=== PATIENT | male | born 1955 | race African-American/Black ===

== ENCOUNTER 2023-08-14 01:08 | Inpatient (IN) | payer BC, OTHER ==
[2023-08-14] VITALS (11 sets, daily range): BP systolic 115–129; BP diastolic 59–72; PULSE 85–120; RESP 18–36; TEMP 97–98.5; O2SAT 94–99
[~2023-08-14] VITALS: Ht 180.3 cm; Wt 70.3 kg
[2023-08-14 01:58] LABS: BASOPHILS % (AUTO) 0.4 % (0.0-2.0); EOSINOPHILS % (AUTO) 0.2 % (0.0-4.0); HEMATOCRIT 46.1 % (36-52); HEMOGLOBIN 15.1 g/dL (12.0-18.0); LYMPHOCYTES # (AUTO) 1.6 K/uL (2.0-11.5); LYMPHOCYTES % (AUTO) 35.3 % (20.5-51.1); MEAN CORPUSCULAR HEMOGLOBIN 28 pg (27-31); MEAN CORPUSCULAR HGB CONC 33 g/dL (33-37); MEAN CORPUSCULAR VOLUME 84.4 fL (80-94); MONOCYTES # (AUTO) 0.2 K/uL (0.8-1.0); NEUTROPHILS # (AUTO) 2.7 K/uL (1.8-7.7); NEUTROPHILS % (AUTO) 59.1 % (42.2-75.2); PLATELET COUNT (AUTO) 89 K/uL (140-450); RED BLOOD CELL COUNT(AUTO) 5.46 MIL/uL (4.20-6.10); RED CELL DISTRIBUTION WIDTH 14.8 % (11.6-13.7); WHITE BLOOD COUNT (AUTO) 4.5 K/uL (4.8-10.8)
[2023-08-14] MEDS: NACL 0.9% 1,000 ML IV ONE ×3 (02:08→07:10)
[2023-08-14 02:11] LABS: INR 1.09 (0.8-1.2); PARTIAL THROMBOPLASTIN TIME 22.4 secs (22-35.6); PROTHROMBIN TIME 11.4 secs (10.8-13.4)
[2023-08-14 02:24] LABS: ANION GAP 31.2 (8-16); CALCIUM 10.4 mg/dL (8.5-10.1); CREATININE 2.7 mg/dL (0.6-1.3); POTASSIUM 3.2 mmol/L (3.5-5.1)
[2023-08-14 02:30] LABS: BLOOD GAS HCO3 14.7 mmol/L (22-26); BLOOD GAS PCO2 22.3 mmHg (35-45)
[2023-08-14 02:31] LABS: BLOOD GAS O2 SAT% 94.5 % (92.0-98.5); FRACTIONATED INSPIRED OXYGEN 0.36 % (0.21-100.00)
[2023-08-14 02:32] LABS: FLU A ANTIGEN negative (NEGATIVE); FLU B ANTIGEN NEGATIVE (NEGATIVE); RSV NEGATIVE (NEGATIVE)
[2023-08-14 02:34] LABS: MAGNESIUM 2.9 mg/dL (1.8-2.4); PHOSPHORUS 5.1 mg/dL (2.5-4.9)
[2023-08-14 02:37] LABS: LACTIC ACID 3.9 mmol/L (0.4-2.0)
[2023-08-14] MEDS: LEVALBUTEROL 1.25 MG/0.5 ML NEBU INH ONE (02:48)
[2023-08-14] MEDS: ASPIRIN 300 MG SUPP RC ONE (02:53)
[2023-08-14] MEDS ORDERED: HEPA500056 SQ (03:41)
[2023-08-14] MEDS ORDERED: ACET-8905 PO (03:41)
[2023-08-14] MEDS ORDERED: MIRT-33 PO (03:41)
[2023-08-14] MEDS ORDERED: ONDA-188 PO (03:41)
[2023-08-14] MEDS ORDERED: ACET-2619 PO (03:41)
[2023-08-14] MEDS ORDERED: MUC600 PO (03:41)
[2023-08-14] MEDS ORDERED: MULT-2472 PO (03:41)
[2023-08-14] MEDS ORDERED: [UNRECOGNIZED DRUG - CODE] PO (03:41)
[2023-08-14] MEDS ORDERED: HYDR12.51 PO (03:41)
[2023-08-14] MEDS ORDERED: LISI-486 PO (03:41)
[2023-08-14] MEDS ORDERED: HYDR-5191 PO (03:41)
[2023-08-14] MEDS ORDERED: CETI10TA71 PO (03:41)
[2023-08-14] MEDS ORDERED: HYDR-1102 PO (03:41)
[2023-08-14] MEDS ORDERED: SIMV-371 PO (03:41)
[2023-08-14] MEDS ORDERED: AZITHROMYCIN 500 MG INJ VIAL IV ONE (04:06)
[2023-08-14] MEDS ORDERED: cefTRIAXone 1,000 MG VIAL ONE (04:06)
[2023-08-14] MEDS: AZITHROMYCIN 500 MG in DEXTROSE 5% 250 ML IV ONE (04:27)
[2023-08-14] MEDS ORDERED: NACL 0.9% 1,000 ML IV SCH (06:55)
[2023-08-14] MEDS: NACL 0.9% 1,000 ML IV SCH ×2 (07:11→08:00)
[2023-08-14] MEDS ORDERED: POTASSIUM CHLORIDE 10 MEQ TABER PO PRN (09:30)
[2023-08-14 10:01] LABS: BASOPHILS % (AUTO) 0.4 % (0.0-2.0); HEMOGLOBIN 13.3 g/dL (12.0-18.0); LYMPHOCYTES # (AUTO) 0.6 K/uL (2.0-11.5); MONOCYTES # (AUTO) 0.1 K/uL (0.8-1.0); PLATELET COUNT (AUTO) 70 K/uL (140-450)
[2023-08-14 10:02] LABS: EOSINOPHILS % (AUTO) 0.1 % (0.0-4.0); HEMATOCRIT 40.8 % (36-52); LYMPHOCYTES % (AUTO) 33.4 % (20.5-51.1); MEAN CORPUSCULAR HEMOGLOBIN 28 pg (27-31); MEAN CORPUSCULAR HGB CONC 33 g/dL (33-37); MEAN CORPUSCULAR VOLUME 84.6 fL (80-94); MONOCYTES % (AUTO) 5.4 % (1.7-9.3); NEUTROPHILS % (AUTO) 60.7 % (42.2-75.2); RED BLOOD CELL COUNT(AUTO) 4.82 MIL/uL (4.20-6.10); RED CELL DISTRIBUTION WIDTH 15.4 % (11.6-13.7)
[2023-08-14 10:07] LABS: WHITE BLOOD COUNT (AUTO) 1.7 K/uL (4.8-10.8)
[2023-08-14 10:11] LABS: ANION GAP 19.5 (8-16); CALCIUM 9.1 mg/dL (8.5-10.1); CARBON DIOXIDE 21.6 mmol/L (21-32); POTASSIUM 3.1 mmol/L (3.5-5.1)
[2023-08-14 10:12] LABS: INR 1.11 (0.8-1.2); PROTHROMBIN TIME 11.6 secs (10.8-13.4)
[2023-08-14 10:20] LABS: LACTIC ACID 3.2 mmol/L (0.4-2.0)
[2023-08-14 10:28] LABS: CHOL/HDL RATIO 6.6 (1-4.5); FREE T4 (FREE THYROXINE) 0.8 ng/dL (0.76-1.46); MAGNESIUM 2.4 mg/dL (1.8-2.4); PHOSPHORUS 2.9 mg/dL (2.5-4.9); THYROID STIMULATING HORMONE 0.34 uIU/mL (0.34-3.74)
[2023-08-14] MEDS: DEXTROSE 5% 1,000 ML IV SCH (12:50)
[2023-08-14] MEDS: POTASSIUM CHLORIDE 40 MEQ, LIDOCAINE 1% 25 MG in NACL 0.9% 250 ML IV SCH (17:52)
[2023-08-14 19:41] LABS: ANION GAP 19.1 (8-16); CALCIUM 9.4 mg/dL (8.5-10.1); CREATININE 1.5 mg/dL (0.6-1.3); POTASSIUM 3.1 mmol/L (3.5-5.1)
[2023-08-14] MEDS: DOCUSATE SODIUM 100 MG GELCAP PO SCH (20:38)
[2023-08-14] MEDS: MIRTAZAPINE 15 MG TAB PO SCH (20:38)
[2023-08-14] MEDS: SIMVASTATIN 10 MG TAB PO SCH (20:38)
[2023-08-14] MEDS ORDERED: GALANTAMINE HBR 16 MG PO SCH (21:00)
[2023-08-15] VITALS (13 sets, daily range): BP systolic 113–178; BP diastolic 53–83; PULSE 53–91; RESP 19–24; TEMP 95.9–98.7; O2SAT 91–100
[2023-08-15] MEDS ORDERED: ALBUTEROL SULFATE/IPRATROPIU 3 ML SOL IH PRN (01:00)
[2023-08-15 02:48] LABS: APPEARANCE,URINE CLEAR (CLEAR); BILIRUBIN,URINE NEGATIVE (NEGATIVE); BLOOD, URINE 2+ (NEGATIVE); COLOR,URINE YELLOW (YELLOW); LEUKOCYTE ESTERASE ,URINE NEGATIVE (NEGATIVE); NITRITE, URINE NEGATIVE (NEGATIVE); PROTEIN,URINE NEGATIVE (NEGATIVE); UGLUCOSE NEGATIVE (NEGATIVE); UROBILINOGEN,URINE 0.2 EU/dL (0.2 - 1)
[2023-08-15 02:53] LABS: BACTERIA,URINE 10-30 (MOD) /HPF (None Seen); MUCUS,URINE 1+ /LPF (None Seen); SQUAMOUS EPITHELIAL CELL,UR 0-3 (FEW) /LPF (0-3 (FEW)); WBC,URINE 0-5 /HPF (0-5)
[2023-08-15 03:03] LABS: AMPHETAMINE, URINE NEGATIVE ng/ml (NEG <=1000); BARBITURATE, URINE NEGATIVE ng/ml (NEG <=200); BENZODIAZEPINE, URINE POSITIVE ng/mL (NEG <=200); CANNABINOID, URINE NEGATIVE ng/mL (NEG <=50); COCAINE, URINE NEGATIVE ng/mL (NEG <=300); OPIATE, URINE NEGATIVE ng/mL (NEG <=2000); PHENCYCLIDINE SCREEN,URINE NEGATIVE ng/mL (NEG <=25)
[2023-08-15 06:52] LABS: BASOPHILS % (AUTO) 0.3 % (0.0-2.0); EOSINOPHILS % (AUTO) 0.4 % (0.0-4.0); HEMATOCRIT 36.5 % (36-52); HEMOGLOBIN 12.1 g/dL (12.0-18.0); LYMPHOCYTES # (AUTO) 0.9 K/uL (2.0-11.5); LYMPHOCYTES % (AUTO) 27.5 % (20.5-51.1); MEAN CORPUSCULAR HEMOGLOBIN 28 pg (27-31); MEAN CORPUSCULAR HGB CONC 33 g/dL (33-37); MEAN CORPUSCULAR VOLUME 83.5 fL (80-94); MONOCYTES # (AUTO) 0.1 K/uL (0.8-1.0); MONOCYTES % (AUTO) 4.4 % (1.7-9.3); NEUTROPHILS # (AUTO) 2.2 K/uL (1.8-7.7); NEUTROPHILS % (AUTO) 67.4 % (42.2-75.2); PLATELET COUNT (AUTO) 59 K/uL (140-450); RED BLOOD CELL COUNT(AUTO) 4.37 MIL/uL (4.20-6.10); RED CELL DISTRIBUTION WIDTH 15.3 % (11.6-13.7); WHITE BLOOD COUNT (AUTO) 3.2 K/uL (4.8-10.8)
[2023-08-15 07:23] LABS: MAGNESIUM 2.2 mg/dL (1.8-2.4); PHOSPHORUS 2.1 mg/dL (2.5-4.9)
[2023-08-15] MEDS: ALBUTEROL SULFATE/IPRATROPIU 3 ML SOL IH SCH ×2 (07:45→12:33)
[2023-08-15 08:02] LABS: ANION GAP 15.7 (8-16); CALCIUM 9.5 mg/dL (8.5-10.1); CARBON DIOXIDE 22.4 mmol/L (21-32); CREATININE 1.3 mg/dL (0.6-1.3); POTASSIUM 3.1 mmol/L (3.5-5.1)
[2023-08-15] MEDS ORDERED: hydroCHLOROthiazide 25 MG TAB PO SCH (09:00)
[2023-08-15] MEDS ORDERED: NON-FORMULARY ITEM (Multivitamin (Multivitamins) 1 TAB) PO SCH (09:00)
[2023-08-15] MEDS ORDERED: AZITHROMYCIN 500 MG in DEXTROSE 5% 250 ML IV SCH (09:00)
[2023-08-15] MEDS ORDERED: NON-FORMULARY ITEM (Cetirizine HCl (Cetirizine Hcl) 10 MG) PO SCH (09:00)
[2023-08-15] MEDS: MULTIVITAMIN 1 TAB PO SCH (09:55)
[2023-08-15] MEDS: hydrALAZINE 10 MG TAB PO SCH (09:55)
[2023-08-15] MEDS: LORATADINE 10 MG TAB PO SCH (09:56)
[2023-08-15] MEDS: lisinopriL 10 MG TAB PO SCH (09:56)
[2023-08-15] MEDS: HYDROcodone/APAP 7.5/325 MG 1 TAB PO PRN (09:58)
[2023-08-15] MEDS: PANTOPRAZOLE 40 MG INJ VIAL IVP SCH (09:58)
[2023-08-15] MEDS: metroNIDAZOLE 500 MG TAB PO SCH (09:59)
[2023-08-15] MEDS: POTASSIUM CHLORIDE 20% 40 MEQ/15 ML UDC NG PRN (11:27)
[2023-08-15] MEDS: DEXT 5% / NACL 0.45% 1,000 ML IV SCH (14:35)
[2023-08-15] MEDS ORDERED: POTASSIUM PHOSPHATE 15 MM in NACL 0.9% 250 ML IV ONE (15:20)
[2023-08-15] MEDS ORDERED: hydrALAZINE 25 MG TAB NG PRN (15:50)
[2023-08-15] MEDS: POTASSIUM PHOSPHATE 15 MM in NACL 0.9% 250 ML IV SCH (15:57)
[2023-08-15] MEDS: METOPROLOL 25 MG TAB PO SCH (21:39)
[2023-08-16] VITALS (8 sets, daily range): BP systolic 141–147; BP diastolic 73–77; PULSE 74–103; RESP 17–26; TEMP 98; O2SAT 97–100
[2023-08-16 06:48] LABS: BASOPHILS % (AUTO) 0.4 % (0.0-2.0); HEMATOCRIT 34.1 % (36-52); HEMOGLOBIN 11.5 g/dL (12.0-18.0); LYMPHOCYTES # (AUTO) 1.4 K/uL (2.0-11.5); LYMPHOCYTES % (AUTO) 31.6 % (20.5-51.1); MEAN CORPUSCULAR HEMOGLOBIN 28 pg (27-31); MEAN CORPUSCULAR HGB CONC 34 g/dL (33-37); MEAN CORPUSCULAR VOLUME 83.2 fL (80-94); MONOCYTES # (AUTO) 0.1 K/uL (0.8-1.0); MONOCYTES % (AUTO) 3.3 % (1.7-9.3); NEUTROPHILS # (AUTO) 2.8 K/uL (1.8-7.7); NEUTROPHILS % (AUTO) 63.7 % (42.2-75.2); PLATELET COUNT (AUTO) 45 K/uL (140-450); WHITE BLOOD COUNT (AUTO) 4.3 K/uL (4.8-10.8)
[2023-08-16 07:01] LABS: ANION GAP 16.4 (8-16); CALCIUM 9.5 mg/dL (8.5-10.1); CREATININE 1.2 mg/dL (0.6-1.3); POTASSIUM 3.4 mmol/L (3.5-5.1)
[2023-08-16 07:02] LABS: MAGNESIUM 1.9 mg/dL (1.8-2.4); PHOSPHORUS 3.3 mg/dL (2.5-4.9)
[2023-08-16] MEDS: DOCUSATE 100 MG/10 ML UDC GT SCH (09:28)
[2023-08-16] MEDS: MIDAZOLAM 5 MG/5 ML VIAL ONE (14:07)
[2023-08-16] MEDS: fentaNYL citrate 0.05 MG/ML VIAL ONE (14:27)
[2023-08-16] MEDS: fentaNYL citrate 0.05 MG/ML VIAL IVP ONE (14:35)
[2023-08-16] MEDS: MIDAZOLAM 2 MG/2 ML VIAL IV ONE (14:35)
[2023-08-16] MEDS: ceFAZolin 1,000 MG VIAL ONE (15:21)
[2023-08-16] MEDS: METOCLOPRAMIDE 10 MG/10 ML SYRP UDC GT SCH (16:57)
[2023-08-16] MEDS: MAGNESIUM HYDROXIDE 2400 MG/30 ML UDC GT SCH (16:58)
[2023-08-16] MEDS: POTASSIUM CHLORIDE 20% 40 MEQ/15 ML UDC GT SCH (18:27)
[2023-08-16] MEDS: DEXTROSE 5% 1,000 ML IV SCH (18:34)
[2023-08-17] VITALS (7 sets, daily range): BP systolic 112–148; BP diastolic 55–75; PULSE 81–103; RESP 17–26; TEMP 97.8–98.9; O2SAT 95–100
[2023-08-17 06:53] LABS: HEMATOCRIT 34.4 % (36-52); HEMOGLOBIN 11.5 g/dL (12.0-18.0); MEAN CORPUSCULAR HEMOGLOBIN 28 pg (27-31); MEAN CORPUSCULAR HGB CONC 33 g/dL (33-37); MEAN CORPUSCULAR VOLUME 83.2 fL (80-94); PLATELET COUNT (AUTO) 32 K/uL (140-450); RED BLOOD CELL COUNT(AUTO) 4.14 MIL/uL (4.20-6.10); WHITE BLOOD COUNT (AUTO) 5.3 K/uL (4.8-10.8)
[2023-08-17 07:07] LABS: ANION GAP 14.8 (8-16); CALCIUM 9.2 mg/dL (8.5-10.1); CARBON DIOXIDE 23.9 mmol/L (21-32); CREATININE 0.9 mg/dL (0.6-1.3); POTASSIUM 3.7 mmol/L (3.5-5.1)
[2023-08-17 07:14] LABS: MAGNESIUM 1.7 mg/dL (1.8-2.4)
[2023-08-17] MEDS: MAG SULF 2000 MG/WATER PREMIX 50 ML IV PRN (07:50)
[2023-08-17 07:58] LABS: BASOPHILS % (MANUAL) 0 % (0-2); BLASTS, MANUAL % 0 % (0-0); EOSINOPHILS % (MANUAL) 0 % (0-4); LYMPHOCYTES % (MANUAL) 20 % (20-46); METAMYELOCYTES % 1 % (0-0); MONOCYTES % (MANUAL) 3 % (5-12); MYELOCYTES % 0 % (0-0); OTHER CELLS,MANUAL % 0 (0-0); PROMYELOCYTES % 0 % (0-0)
[2023-08-17 08:00] LABS: PLATELET ESTIMATE DECREASED
[2023-08-17] MEDS: MAG SULF 2000 MG/WATER PREMIX 50 ML IV SCH (10:30)
[2023-08-18 04:00] VITALS: BP 152/82; PULSE 94; RESP 18; TEMP 98.1; O2SAT 100
[2023-08-18 06:54] VITALS: PULSE 109; PULSE 95; RESP 24; O2SAT 94; O2SAT 95
[2023-08-18 07:14] LABS: CARBON DIOXIDE 22.8 mmol/L (21-32); CREATININE 0.9 mg/dL (0.6-1.3); POTASSIUM 3.8 mmol/L (3.5-5.1)
[2023-08-18 07:20] LABS: MAGNESIUM 1.9 mg/dL (1.8-2.4); PHOSPHORUS 4.6 mg/dL (2.5-4.9)
[2023-08-18 08:00] VITALS: BP 155/89; PULSE 122; PULSE 94; RESP 17; RESP 22; TEMP 97.5; O2SAT 95
[2023-08-18 08:14] LABS: BASOPHILS % (AUTO) 0.3 % (0.0-2.0); EOSINOPHILS # (AUTO) 0.1 K/uL (0-0.4); HEMATOCRIT 35.7 % (36-52); HEMOGLOBIN 11.8 g/dL (12.0-18.0); LYMPHOCYTES # (AUTO) 2.1 K/uL (2.0-11.5); LYMPHOCYTES % (AUTO) 29.7 % (20.5-51.1); MEAN CORPUSCULAR HEMOGLOBIN 28 pg (27-31); MEAN CORPUSCULAR HGB CONC 33 g/dL (33-37); MEAN CORPUSCULAR VOLUME 83.7 fL (80-94); MONOCYTES # (AUTO) 0.2 K/uL (0.8-1.0); NEUTROPHILS # (AUTO) 4.7 K/uL (1.8-7.7); RED BLOOD CELL COUNT(AUTO) 4.26 MIL/uL (4.20-6.10); WHITE BLOOD COUNT (AUTO) 7.2 K/uL (4.8-10.8)
[2023-08-18 08:21] LABS: PLATELET COUNT (AUTO) 16 K/uL (140-450)
[2023-08-18 13:38] VITALS: PULSE 97; RESP 22; O2SAT 95
[2023-08-18 19:09] VITALS: PULSE 107; RESP 28; O2SAT 95; O2SAT 99
[2023-08-18 20:00] VITALS: BP 153/94; PULSE 113; RESP 22; TEMP 98.5; O2SAT 100; O2SAT 97
[2023-08-19] VITALS (7 sets, daily range): BP systolic 46–120; BP diastolic 65–89; PULSE 81–101; RESP 16–22; TEMP 97.3–98.4; O2SAT 95–100
[2023-08-19 06:37] LABS: BASOPHILS % (AUTO) 0.2 % (0.0-2.0); EOSINOPHILS % (AUTO) 0.7 % (0.0-4.0); HEMATOCRIT 35.8 % (36-52); HEMOGLOBIN 11.8 g/dL (12.0-18.0); LYMPHOCYTES # (AUTO) 1.1 K/uL (2.0-11.5); LYMPHOCYTES % (AUTO) 21.1 % (20.5-51.1); MEAN CORPUSCULAR HEMOGLOBIN 27 pg (27-31); MEAN CORPUSCULAR HGB CONC 33 g/dL (33-37); MEAN CORPUSCULAR VOLUME 82.8 fL (80-94); MONOCYTES # (AUTO) 0.2 K/uL (0.8-1.0); MONOCYTES % (AUTO) 3.5 % (1.7-9.3); NEUTROPHILS # (AUTO) 3.9 K/uL (1.8-7.7); NEUTROPHILS % (AUTO) 74.5 % (42.2-75.2); RED BLOOD CELL COUNT(AUTO) 4.32 MIL/uL (4.20-6.10); WHITE BLOOD COUNT (AUTO) 5.3 K/uL (4.8-10.8)
[2023-08-19 06:47] LABS: PHOSPHORUS 4.2 mg/dL (2.5-4.9)
[2023-08-19 06:48] LABS: ANION GAP 14.1 (8-16); CALCIUM 9.8 mg/dL (8.5-10.1); CARBON DIOXIDE 27.3 mmol/L (21-32); CREATININE 1.1 mg/dL (0.6-1.3); POTASSIUM 4.4 mmol/L (3.5-5.1)
[2023-08-19 07:15] LABS: PLATELET COUNT (AUTO) 12 K/uL (140-450)
[2023-08-19] MEDS: metroNIDAZOLE 500 MG TAB PO SCH (09:45)
[2023-08-20] VITALS (8 sets, daily range): BP systolic 115–131; BP diastolic 67–79; PULSE 97–108; RESP 16–20; TEMP 97.9–98.2; O2SAT 96–100
[2023-08-20 07:02] LABS: BASOPHILS % (AUTO) 0.5 % (0.0-2.0); EOSINOPHILS % (AUTO) 0.5 % (0.0-4.0); LYMPHOCYTES # (AUTO) 1.5 K/uL (2.0-11.5); LYMPHOCYTES % (AUTO) 24.2 % (20.5-51.1); MEAN CORPUSCULAR HEMOGLOBIN 28 pg (27-31); MEAN CORPUSCULAR HGB CONC 33 g/dL (33-37); MEAN CORPUSCULAR VOLUME 82.8 fL (80-94); MONOCYTES # (AUTO) 0.2 K/uL (0.8-1.0); MONOCYTES % (AUTO) 3.1 % (1.7-9.3); NEUTROPHILS # (AUTO) 4.3 K/uL (1.8-7.7); NEUTROPHILS % (AUTO) 71.7 % (42.2-75.2); PLATELET COUNT (AUTO) 51 K/uL (140-450); RED BLOOD CELL COUNT(AUTO) 4.35 MIL/uL (4.20-6.10); RED CELL DISTRIBUTION WIDTH 14.7 % (11.6-13.7)
[2023-08-20 08:20] LABS: ANION GAP 18.2 (8-16); CALCIUM 9.3 mg/dL (8.5-10.1); CARBON DIOXIDE 23.4 mmol/L (21-32); CREATININE 0.9 mg/dL (0.6-1.3); POTASSIUM 3.6 mmol/L (3.5-5.1)
[2023-08-20 08:25] LABS: MAGNESIUM 1.9 mg/dL (1.8-2.4); PHOSPHORUS 4.1 mg/dL (2.5-4.9)
[2023-08-20] MEDS ORDERED: GALA8TAB PO (10:08)
[2023-08-20] MEDS ORDERED: AZIT250T4 PO (10:08)
[2023-08-20] MEDS ORDERED: METO25TA PO (10:08)
[2023-08-21] VITALS (9 sets, daily range): BP systolic 120–138; BP diastolic 63–75; PULSE 83–107; RESP 18–22; TEMP 97.9–98.8; O2SAT 96–99
[2023-08-21 07:11] LABS: BASOPHILS % (AUTO) 0.6 % (0.0-2.0); EOSINOPHILS % (AUTO) 0.7 % (0.0-4.0); HEMATOCRIT 33.7 % (36-52); HEMOGLOBIN 11.2 g/dL (12.0-18.0); LYMPHOCYTES # (AUTO) 1.2 K/uL (2.0-11.5); LYMPHOCYTES % (AUTO) 20.2 % (20.5-51.1); MEAN CORPUSCULAR HEMOGLOBIN 28 pg (27-31); MEAN CORPUSCULAR HGB CONC 33 g/dL (33-37); MEAN CORPUSCULAR VOLUME 82.9 fL (80-94); MONOCYTES # (AUTO) 0.2 K/uL (0.8-1.0); MONOCYTES % (AUTO) 3.5 % (1.7-9.3); NEUTROPHILS # (AUTO) 4.3 K/uL (1.8-7.7); RED BLOOD CELL COUNT(AUTO) 4.06 MIL/uL (4.20-6.10); WHITE BLOOD COUNT (AUTO) 5.8 K/uL (4.8-10.8)
[2023-08-21 07:19] LABS: ANION GAP 16.6 (8-16); CALCIUM 9.4 mg/dL (8.5-10.1); CARBON DIOXIDE 24.5 mmol/L (21-32); POTASSIUM 4.1 mmol/L (3.5-5.1)
[2023-08-21 07:20] LABS: PLATELET COUNT (AUTO) 17 K/uL (140-450)
[2023-08-21 07:28] LABS: PHOSPHORUS 4.3 mg/dL (2.5-4.9)
[2023-08-21 10:48] LABS: LACTIC ACID 3.8 mmol/L (0.4-2.0)
[2023-08-21] MEDS: LORazepam 0.5 MG TAB GT PRN (17:20)
[2023-08-22] VITALS (14 sets, daily range): BP systolic 116–169; BP diastolic 71–85; PULSE 84–110; RESP 18–20; TEMP 97.6–98.4; O2SAT 93–100
[2023-08-22 06:48] LABS: BASOPHILS % (AUTO) 0.6 % (0.0-2.0); EOSINOPHILS % (AUTO) 0.3 % (0.0-4.0); HEMATOCRIT 30.3 % (36-52); HEMOGLOBIN 10.2 g/dL (12.0-18.0); LYMPHOCYTES # (AUTO) 1.3 K/uL (2.0-11.5); LYMPHOCYTES % (AUTO) 22.9 % (20.5-51.1); MEAN CORPUSCULAR HEMOGLOBIN 28 pg (27-31); MEAN CORPUSCULAR HGB CONC 34 g/dL (33-37); MEAN CORPUSCULAR VOLUME 82.6 fL (80-94); MONOCYTES # (AUTO) 0.2 K/uL (0.8-1.0); MONOCYTES % (AUTO) 2.9 % (1.7-9.3); NEUTROPHILS # (AUTO) 4.2 K/uL (1.8-7.7); NEUTROPHILS % (AUTO) 73.3 % (42.2-75.2); RED BLOOD CELL COUNT(AUTO) 3.67 MIL/uL (4.20-6.10); RED CELL DISTRIBUTION WIDTH 14.7 % (11.6-13.7)
[2023-08-22 06:53] LABS: PLATELET COUNT (AUTO) 17 K/uL (140-450)
[2023-08-22 06:55] LABS: WHITE BLOOD COUNT (AUTO) 5.7 K/uL (4.8-10.8)
[2023-08-22 07:24] LABS: ANION GAP 16.2 (8-16); CALCIUM 9.4 mg/dL (8.5-10.1); CARBON DIOXIDE 22.9 mmol/L (21-32); CREATININE 0.9 mg/dL (0.6-1.3); POTASSIUM 4.1 mmol/L (3.5-5.1)
[2023-08-22 07:25] LABS: MAGNESIUM 1.9 mg/dL (1.8-2.4); PHOSPHORUS 3.7 mg/dL (2.5-4.9)
[2023-08-23] VITALS (12 sets, daily range): BP systolic 121–150; BP diastolic 66–81; PULSE 90–120; RESP 18–24; TEMP 96.7–98.6; O2SAT 93–99
[2023-08-23] MEDS: ONDANSETRON 4 MG/2 ML VIAL IVP PRN (00:32)
[2023-08-23 07:56] LABS: BASOPHILS % (AUTO) 0.4 % (0.0-2.0); EOSINOPHILS % (AUTO) 0.3 % (0.0-4.0); HEMATOCRIT 31.3 % (36-52); HEMOGLOBIN 10.4 g/dL (12.0-18.0); LYMPHOCYTES # (AUTO) 1.6 K/uL (2.0-11.5); LYMPHOCYTES % (AUTO) 24.8 % (20.5-51.1); MEAN CORPUSCULAR HEMOGLOBIN 27 pg (27-31); MEAN CORPUSCULAR HGB CONC 33 g/dL (33-37); MEAN CORPUSCULAR VOLUME 82.2 fL (80-94); MONOCYTES # (AUTO) 0.2 K/uL (0.8-1.0); MONOCYTES % (AUTO) 3.6 % (1.7-9.3); NEUTROPHILS # (AUTO) 4.5 K/uL (1.8-7.7); NEUTROPHILS % (AUTO) 70.9 % (42.2-75.2); PLATELET COUNT (AUTO) 25 K/uL (140-450); RED CELL DISTRIBUTION WIDTH 14.6 % (11.6-13.7); WHITE BLOOD COUNT (AUTO) 6.3 K/uL (4.8-10.8)
[2023-08-23 08:39] LABS: ANION GAP 19.5 (8-16); CALCIUM 9.5 mg/dL (8.5-10.1); CARBON DIOXIDE 21.2 mmol/L (21-32); CREATININE 1.1 mg/dL (0.6-1.3); POTASSIUM 4.7 mmol/L (3.5-5.1)
[2023-08-23 09:28] LABS: MAGNESIUM 1.9 mg/dL (1.8-2.4); PHOSPHORUS 4.7 mg/dL (2.5-4.9)
[2023-08-24] VITALS (10 sets, daily range): BP systolic 127–128; BP diastolic 68–71; PULSE 98–107; RESP 17–20; TEMP 97.4–97.7; O2SAT 87–99
[2023-08-24 07:15] LABS: HEMATOCRIT 31.6 % (36-52); HEMOGLOBIN 10.4 g/dL (12.0-18.0); MEAN CORPUSCULAR HEMOGLOBIN 28 pg (27-31); MEAN CORPUSCULAR HGB CONC 33 g/dL (33-37); MEAN CORPUSCULAR VOLUME 83.6 fL (80-94); PLATELET COUNT (AUTO) 35 K/uL (140-450); RED BLOOD CELL COUNT(AUTO) 3.77 MIL/uL (4.20-6.10); RED CELL DISTRIBUTION WIDTH 14.6 % (11.6-13.7)
[2023-08-24 07:37] LABS: PHOSPHORUS 4.2 mg/dL (2.5-4.9)
[2023-08-24 08:04] LABS: ANION GAP 20.3 (8-16); CALCIUM 9.6 mg/dL (8.5-10.1); CARBON DIOXIDE 20.1 mmol/L (21-32); CREATININE 1.1 mg/dL (0.6-1.3); POTASSIUM 4.4 mmol/L (3.5-5.1)
[2023-08-24 08:21] LABS: BASOPHILS % (MANUAL) 0 % (0-2); BLASTS, MANUAL % 0 % (0-0); EOSINOPHILS % (MANUAL) 0 % (0-4); LYMPHOCYTES % (MANUAL) 20 % (20-46); METAMYELOCYTES % 0 % (0-0); MONOCYTES % (MANUAL) 2 % (5-12); MYELOCYTES % 0 % (0-0); OTHER CELLS,MANUAL % 0 (0-0); PROMYELOCYTES % 0 % (0-0)
[2023-08-24 08:22] LABS: PLASMA CELLS 0; PLATELET ESTIMATE SLIGHTLY DECREASED
[2023-08-25] VITALS (8 sets, daily range): BP systolic 111–146; BP diastolic 53–74; PULSE 91–104; RESP 18–19; TEMP 97.4–98.6; O2SAT 93–100
[2023-08-26] VITALS (7 sets, daily range): BP systolic 119–150; BP diastolic 63–88; PULSE 97–118; RESP 18–24; TEMP 97.7–98.5; O2SAT 96–100
[2023-08-27] VITALS (8 sets, daily range): BP systolic 115–128; BP diastolic 66–70; PULSE 89–96; RESP 18–20; TEMP 97.8–98.3; O2SAT 93–99
[2023-08-27] MEDS: ACETAMINOPHEN 325 MG TAB PO PRN (20:48)
[2023-08-28] VITALS (12 sets, daily range): BP systolic 119–143; BP diastolic 63–74; PULSE 88–109; RESP 17–20; TEMP 95.5–98.6; O2SAT 96–100
[2023-08-28 07:39] LABS: BASOPHILS % (AUTO) 0.6 % (0.0-2.0); EOSINOPHILS % (AUTO) 1.1 % (0.0-4.0); HEMATOCRIT 27.5 % (36-52); HEMOGLOBIN 9.3 g/dL (12.0-18.0); LYMPHOCYTES # (AUTO) 1.7 K/uL (2.0-11.5); LYMPHOCYTES % (AUTO) 46.1 % (20.5-51.1); MEAN CORPUSCULAR HEMOGLOBIN 28 pg (27-31); MEAN CORPUSCULAR HGB CONC 34 g/dL (33-37); MEAN CORPUSCULAR VOLUME 82.1 fL (80-94); MONOCYTES # (AUTO) 0.2 K/uL (0.8-1.0); MONOCYTES % (AUTO) 4.6 % (1.7-9.3); NEUTROPHILS # (AUTO) 1.7 K/uL (1.8-7.7); NEUTROPHILS % (AUTO) 47.6 % (42.2-75.2); PLATELET COUNT (AUTO) 40 K/uL (140-450); RED BLOOD CELL COUNT(AUTO) 3.35 MIL/uL (4.20-6.10); RED CELL DISTRIBUTION WIDTH 14.2 % (11.6-13.7); WHITE BLOOD COUNT (AUTO) 3.6 K/uL (4.8-10.8)
[2023-08-28 07:51] LABS: ANION GAP 15.9 (8-16); CALCIUM 9.4 mg/dL (8.5-10.1); CARBON DIOXIDE 24.1 mmol/L (21-32); CREATININE 0.9 mg/dL (0.6-1.3)
[2023-08-28 08:17] LABS: MAGNESIUM 1.9 mg/dL (1.8-2.4); PHOSPHORUS 4.3 mg/dL (2.5-4.9)
[2023-08-29] VITALS (7 sets, daily range): BP systolic 147; BP diastolic 79; PULSE 98–110; RESP 18–20; TEMP 98.1; O2SAT 97–100
[2023-08-29] MEDS ORDERED: HYDROcodone/APAP 5/325 MG 1 TAB TAB PO PRN (07:10)
[2023-08-29 07:19] LABS: HEMATOCRIT 26.7 % (36-52); HEMOGLOBIN 9.1 g/dL (12.0-18.0); MEAN CORPUSCULAR HEMOGLOBIN 28 pg (27-31); MEAN CORPUSCULAR HGB CONC 34 g/dL (33-37); MEAN CORPUSCULAR VOLUME 82.4 fL (80-94); PLATELET COUNT (AUTO) 36 K/uL (140-450); RED BLOOD CELL COUNT(AUTO) 3.24 MIL/uL (4.20-6.10); RED CELL DISTRIBUTION WIDTH 14.1 % (11.6-13.7); WHITE BLOOD COUNT (AUTO) 3.1 K/uL (4.8-10.8)
[2023-08-29 07:38] LABS: MAGNESIUM 1.8 mg/dL (1.8-2.4); PHOSPHORUS 4.2 mg/dL (2.5-4.9)
[2023-08-29 07:41] LABS: CALCIUM 9.2 mg/dL (8.5-10.1); CARBON DIOXIDE 22.8 mmol/L (21-32); CREATININE 0.9 mg/dL (0.6-1.3); POTASSIUM 3.8 mmol/L (3.5-5.1)
[2023-08-29 10:50] LABS: EOSINOPHILS % (MANUAL) 1 % (0-4); LYMPHOCYTES % (MANUAL) 30 % (20-46); MONOCYTES % (MANUAL) 6 % (5-12)
[2023-08-29 10:51] LABS: PLATELET ESTIMATE DECREASED
== END 2023-08-29 18:10 | DRG 871 ==
LOC: MED 01:08 → MTU 04:05
PROC: 0DH63UZ Insertion of Feeding Device into Stomach, Percutaneous Approach (ICD-10-PCS; principal; 2023-08-16 13:20)
DX: A41.9 Sepsis, unspecified organism (principal); G93.41 Metabolic encephalopathy; R65.21 Severe sepsis with septic shock; J69.0 Pneumonitis due to inhalation of food and vomit; N17.0 Acute kidney failure with tubular necrosis; J96.01 Acute respiratory failure with hypoxia; E87.1 Hypo-osmolality and hyponatremia; M48.52XA Collapsed vertebra, not elsewhere classified, cervical region, initial encounter for fracture; D61.818 Other pancytopenia; E87.0 Hyperosmolality and hypernatremia; R47.01 Aphasia; I24.89 Other forms of acute ischemic heart disease; Z66 Do not resuscitate; Z20.822 Contact with and (suspected) exposure to COVID-19; F03.90 Unspecified dementia, unspecified severity, without behavioral disturbance, psychotic disturbance, mood disturbance, and anxiety; I10 Essential (primary) hypertension; E78.5 Hyperlipidemia, unspecified; F32.A Depression, unspecified; D69.6 Thrombocytopenia, unspecified; E83.41 Hypermagnesemia; E87.6 Hypokalemia; E86.0 Dehydration; E83.39 Other disorders of phosphorus metabolism; R13.12 Dysphagia, oropharyngeal phase; R31.9 Hematuria, unspecified
CPT/HCPCS: 36415; 71045; 76770; 80048; 80305; 81001; 82140; 82150; 83036; 83605; 83690; 83735; 83880; 84100; 84439; 84443; 84484; 85025; 85610; 85730; 87040; 87070; 87081; 87086; 87205; 87420; 89220; 92526; 93005; 94640; 96374; 96375; 97110; 97112; 97163-GP; 97530; 99285; C9113; J0456; J0690; J0696; J2001; J2250; J2405; J3010; J3475; J3480; J7030; J7060; J7612; J8597; Q0092